=== PATIENT | female | born 1985 | race Caucasian/White ===

== ENCOUNTER 2024-03-19 10:56 | Outpatient (RCR) | payer OTHER, SELFPAY ==
[2024-03-19 10:59] VITALS: BMI 38.2
[2024-03-19 14:03] VITALS: BMI 38.2
== END 2024-06-15 09:25 | disposition home or self-care (01) ==
LOC: ANHDMC 10:56
PROVIDERS: PCP Physician Assistant; Visit Provider Physician Assistant
DX: E11.9 Type 2 diabetes mellitus without complications (principal); Z71.3 Dietary counseling and surveillance
CPT/HCPCS: 97802